=== PATIENT | female | born 1980 | race Caucasian/White ===

== ENCOUNTER 2020-10-17 17:36 | Emergency (ER) | payer OTHER ==
[2020-10-17] MEDS ORDERED: BENTYL10 MG PO (19:15)
== END 2020-10-17 19:30 | disposition home or self-care (01) ==
LOC: FER 17:36
DX: R10.9 Unspecified abdominal pain (principal); G89.29 Other chronic pain; F17.210 Nicotine dependence, cigarettes, uncomplicated; Z90.49 Acquired absence of other specified parts of digestive tract
CPT/HCPCS: 99283

== ENCOUNTER 2021-03-11 14:02 | Emergency (ER) | payer OTHER ==
[~2021-03-11 14:02] MED LIST: BENTYL10 MG PO
== END 2021-03-11 16:30 | disposition home or self-care (01) ==
LOC: FER 14:02
DX: F15.10 Other stimulant abuse, uncomplicated (principal); J45.909 Unspecified asthma, uncomplicated; Z90.89 Acquired absence of other organs
CPT/HCPCS: 99283